=== PATIENT | male | born 1955 | race Hispanic/Latino ===

== ENCOUNTER → 2025-01-05 | Outpatient (CLI) | payer BC ==
[~2025-01-05] MED LIST: IOHEXOL-350 75 ML VIAL IV ONE
--- NOTE | 2025-01-05 10:46 | HMCIMG ---
EXAM: CT examination of the chest without and with IV contrast CLINICAL HISTORY: Malignant neoplasm of the esophagus. TECHNIQUE: Thin collimated axial CTA images of the chest without and with IV contrast were obtained with sagittal and coronal reformatted images also submitted. CT scan is done according to ALARA (As Low as Reasonably Achievable). COMPARISON: None provided. FINDINGS: No acute infiltrate or pulmonary mass. Multiple small to medium-sized calcified foci are scattered in the bilateral lung torres, with scattered areas of linear atelectasis. No pleural effusions. No pericardial effusion. The heart size is within normal limits. Left-sided AICD device is identified with leads in place. Coronary vessels and intrathoracic aorta reveal scattered atherosclerotic plaques with wall calcifications. No thoracic aortic aneurysm or dissection. No filling defect or pulmonary thromboembolism. No axillary, supraclavicular, or mediastinal lymphadenopathy. No focal thyroid abnormality. Limited views of the upper abdomen demonstrate no abnormality. No acute or suspicious osseous abnormality. IMPRESSION: No acute process in the chest. No pulmonary mass. Multiple small to medium-sized calcified foci in the bilateral lung torres with scattered areas of atelectasis. No significant mediastinal lymphadenopathy. EXAM: CT Abdomen and Pelvis without and with IV contrast CLINICAL HISTORY: Malignant neoplasm of the esophagus. TECHNIQUE: Thin collimated axial CT images of the abdomen and pelvis without and with IV contrast were obtained with sagittal and coronal reformatted images also submitted. CT scan is done according to ALARA (As Low As Reasonably Achievable). COMPARISON: None. FINDINGS: Calcified nodules in the bilateral lung bases. No focal abnormality within the liver, pancreas, spleen, adrenals, or kidneys. Status post cholecystectomy. There is no obvious bowel wall thickening. Bowel loops are normal in caliber without evidence of obstruction or ileus. The appendix is normal. There is no abnormality within the urinary bladder. Unremarkable reproductive organs. Abdominal and pelvic vessels are patent. No lymphadenopathy. No free fluid. There is no acute osseous abnormality. Small sclerotic foci in the left proximal femur suggest bone islands. IMPRESSIONS: No acute process in the abdomen or pelvis. /[place]
== END | disposition home or self-care (01) ==
LOC: RAH 08:29
PROVIDERS: ATTEND Surgery Surgical Oncology
DX: C15.9 Malignant neoplasm of esophagus, unspecified (principal); R91.8 Other nonspecific abnormal finding of lung field; Z90.49 Acquired absence of other specified parts of digestive tract
CPT/HCPCS: 71270; 74178; Q9967